=== PATIENT | female | born 1950 | race Caucasian/White ===

== ENCOUNTER → 2019-06-19 | Outpatient (CLI) | payer MEDICARE ==
[2019-06-19 11:22] LABS: African American GFR (CKD) >90 (>60 ml/min/1.73 sqM); Anion Gap 10 mmol/L; Blood Urea Nitrogen 19 mg/dL (7-17); Carbon Dioxide 25 mmol/L (22-30); Chloride 103 mmol/L (98-107); Non-African American GFR(CKD) 83 (>60 ml/min/1.73 sqM); Potassium 4.8 mmol/L (3.5-5.1); Sodium 138 mmol/L (137-145)
[2019-06-19 11:25] LABS: HCT 38.5 % (34.0-46.0); HGB 13.1 gm/dL (11.4-16.0); MCH 30.7 pg (25.0-35.0); MCHC 33.9 g/dL (31.0-37.0); MCV 90.6 fL (80.0-100.0); Mean Platelet Volume 7.2; Platelet Count 277 k/uL (150-450); RBC 4.25 m/uL (3.80-5.40); RDW 12.8 % (11.5-15.5); WBC 10.2 k/uL (3.8-10.6)
== END | disposition home or self-care (01) ==
LOC: LABPAT 10:38
PROVIDERS: ATTEND Internal Medicine Interventional Cardiology
DX: Z01.812 Encounter for preprocedural laboratory examination (principal); R94.39 Abnormal result of other cardiovascular function study
CPT/HCPCS: 80051; 82565; 84520; 85027

== ENCOUNTER 2019-06-30 09:17 | Day surgery (SDC) | payer MEDICARE ==
[~2019-06-30 09:17] MED LIST: ALPRAZolam 0.25 MG TAB PO PRN; ALPRAZolam 0.5 MG TAB PO PRN; ASPIRIN 325 MG TAB PO ONE; ATORVASTATIN 80 MG TAB PO ONE; NITROGLYCERIN SL TABS 0.4 MG TAB SUBLINGUAL PRN; SODIUM CHLORIDE 0.9% 1,000 ML in EMPTY BAG 1 BAG IV ONE
[2019-06-30] MEDS ORDERED: VERAPAMIL 2.5 MG/ML 2 ML AMP ONE (10:23)
[2019-06-30] MEDS ORDERED: HEPARIN SODIUM 1,000 UN/ML (10ML VL) ONE (10:23)
[2019-06-30] MEDS ORDERED: LIDOCAINE 1% INJ 10MG/ML (20 ML MDV) ONE (10:23)
[2019-06-30] MEDS ORDERED: MIDAZOLAM 2 MG/2 ML VIAL IVP ONE (11:00)
[2019-06-30] MEDS ORDERED: LIDOCAINE 1% INJ 10MG/ML (20 ML MDV) SQ ONE (11:02)
[2019-06-30] MEDS ORDERED: VERAPAMIL SYRINGE (5 MG/10 ML) INTRAARTER ONE (11:07)
[2019-06-30] MEDS ORDERED: HEPARIN SODIUM 1,000 UN/ML (10ML VL) IV ONE ×3 (11:08→11:58)
[2019-06-30] MEDS ORDERED: TICAGRELOR 90 MG TAB ONE (11:31)
[2019-06-30] MEDS ORDERED: TICAGRELOR 90 MG TAB PO ONE (11:33)
[2019-06-30] MEDS ORDERED: IOPAMIDOL-370 100ML BTL INJ ONE ×2 (11:33→12:17)
[2019-06-30] MEDS ORDERED: NITROGLYCERIN 1000MCG/10ML SYRINGE INTRACORON ONE ×3 (11:36→12:15)
[2019-06-30] MEDS ORDERED: IOPAMIDOL-370 50ML BTL INJ ONE (12:20)
[2019-06-30] MEDS ORDERED: ATROPINE SULFATE 0.1 MG/ML 10ML SYRINGE IV PRN (12:36)
[2019-06-30] MEDS ORDERED: ZOLPIDEM 5 MG TAB PO PRN (12:36)
[2019-06-30] MEDS ORDERED: MAG HYDROX/AL HYDROX/SIMETH 30 ML CUP PO PRN (12:36)
[2019-06-30] MEDS ORDERED: NITROGLYCERIN SL TABS 0.4 MG TAB SUBLINGUAL PRN (12:36)
[2019-06-30] MEDS ORDERED: RX INFO: IV CONTRAST WAS GIVEN 1 EACH MISC MISCELLANE PRN (12:36)
--- NOTE | 2019-06-30 13:48 | CC ---
CARDIAC CATHETERIZATION REPORT DATE OF SERVICE: 06/30/2019. PROCEDURE: 1. Left heart catheterization and coronary angiography. 2. PTCA and stenting of first obtuse marginal branch of circumflex. 3. PTCA of second obtuse marginal branch of circumflex. PERFORMED BY: Dr. Araceli Ramirez. Moderate conscious sedation time was 89 minutes. Patient was administered Versed. Oxygen saturation, hemodynamics and EKG were monitored closely. CLINICAL INFORMATION: Mrs. Kanwal Adler is a 69-year-old lady with a known history of hypertension, hypercholesterolemia who has also history of paroxysmal atrial fibrillation and had some wide QRS tachycardia issues. Recently, she had a positive stress test with ventricular ectopy as well as ST depression after 6 minutes of exercise, was seen and evaluated by Dr. Albert who advised coronary angiography. I met the patient and , explained to them the rationale, risks, benefits and options. They understood all details and wished to proceed with the procedure. PROCEDURE NOTE: Under local anesthesia and strict aseptic precautions, a 6-Australian introducer was placed in the right radial artery. Using 5-Australian diagnostic catheters at 3.5 left and a 4.0 right Vonda catheters, I performed coronary angiography and the same right catheter was used to check LV pressures but LV gram was not performed. I noted that there was significant lesions in the 2 obtuse marginal branches of circumflex and a moderate mid LAD lesion of about 40%. Advised PCI of the circumflex marginal lesions and proceeded to perform them in the same setting. Following the entire procedure, I was able to place a TR band as per protocol and secured good hemostasis. Saturation in the fingers of the right hand was 91%. CARDIAC CATHETERIZATION FINDINGS: The left ventricular end-diastolic pressure was 12 mmHg without any gradient across the aortic valve. CORONARY ANGIOGRAPHY FINDINGS: RIGHT CORONARY ARTERY: This is a large dominant vessel which has no significant disease and distally bifurcates into PDA and PLV, both of which supply a fair amount of myocardium. Minor irregularities. No significant disease in the dominant RCA. LEFT MAIN CORONARY ARTERY: Short patent disease-free vessel that bifurcates into LAD and circumflex. LEFT ANTERIOR DESCENDING CORONARY ARTERY: Good caliber vessel extends along the anterior wall. There is about a 40% lesion in the mid LAD noted in multiple projections. It does not appear critical but moderate and there is a septal branch that comes off and then this lesion is noted and the vessel runs all the way to the apex supplying a sizable amount of myocardium. LEFT POSTERIOR CIRCUMFLEX CORONARY ARTERY: This is a technically nondominant vessel has 2 obtuse marginal branches. The first large obtuse marginal has 80% to 85% narrowing starting from the proximal portion just after the takeoff from the main circumflex and extends distally. Second obtuse marginal lesion is more discrete. Both of these vessels are 2.5 caliber vessels. The circumflex after the second OM runs in the AV groove. LEFT VENTRICULOGRAM: Left ventriculogram was not performed. FINAL IMPRESSION: This patient has a right dominant system. Moderate 40% to 45% mid LAD lesion. An 85% lesion in the first large circumflex marginal and 80% in the second large obtuse marginal lesion. RCA is free of significant disease. No gradient across aortic valve. RECOMMENDATIONS: I recommended PCI of both the branches of circumflex and proceeded to perform in the same setting. PCI PROCEDURE DETAILS: I used a JL4 guide catheter to cannulate the left coronary artery and a run-through wire and wire was kept in the distal aspect of the first obtuse marginal. Predilatation was performed with a 2.25 caliber 12 mm Trek balloon and then I deployed an 18 mm long 2.5 caliber Xience stent and the proximal end of the stent was placed right at the ostium. Excellent angiographic result was achieved. Then, I advanced the same run-through wire into the second obtuse marginal and I tried to advance a 2.25 caliber 12 mm Trek balloon, but I had difficulty trying to get past the first obtuse marginal because a strut of the stent was probably protruding into the main vessel. I had considerable difficulty. Then I used a 2.0 caliber without success. Then I used a 1.5 caliber 8 mm Trek balloon. With this I was able to get across this area and then I dilated the mid circumflex at this origin of the first obtuse marginal and then with a 2.25 caliber balloon I went ahead and pre-dilated the second obtuse marginal lesion with a good result. There is a portion of circumflex between the 2 obtuse marginal that was somewhat hazy, but no critical lesion was noted. I then tried to advance the stent into the second obtuse marginal, and this was Mateo 2.0 stent but I had great difficulty even with 8 mm long Mateo stent, I could not advance into the second obtuse marginal and I was getting stuck in the first obtuse marginal where the strut of the first stent was protruding in. I used 2 wires and even with a double wire technique, I was unable to get the stent beyond. Eventually I settled for an angioplasty result which was fair with a residual lesion of about 50% in the second obtuse marginal, but the first obtuse marginal result was excellent. Mid circumflex had a hazy area with a 40% narrowing, there was MOLLY-3 flow. I discussed the findings in great detail with the patient as well as her and other family members. I explained to them that because of the location of the first stent in the first OM with protrusion into the main circumflex I could not advance the second stent distally. However, I will consider bringing her back after I see her in the office in a week and see if we can get beyond the first stent to open it up. The patient was then sent to the room in a stable condition and she was asymptomatic with a good MOLLY-3 flow. I will hopefully discharge her in the morning and re-evaluate her within a week. MMNEHA / IJN: [id number] /
[2019-06-30] MEDS: SODIUM CHLORIDE 0.9% 1,000 ML IV SCH (17:10)
[2019-06-30] MEDS: CARVEDILOL 3.125 MG TAB PO SCH (18:51)
[2019-06-30] MEDS: SPIRONOLACTONE 25 MG TAB PO SCH (20:52)
[2019-06-30] MEDS: ATORVASTATIN 80 MG TAB PO SCH (20:52)
[2019-07-01] MEDS: SODIUM CHLORIDE 0.9% 1,000 ML IV SCH (04:12)
[2019-07-01] MEDS: CARVEDILOL 3.125 MG TAB PO SCH ×2 (06:53→18:30)
[2019-07-01 07:04] LABS: Basophils # (A) 0.1 k/uL (0-0.2); Basophils % (A) 1 %; Eosinophils # (A) 0.3 k/uL (0-0.7); Eosinophils % (A) 3 %; HCT 36.7 % (34.0-46.0); Lymphocytes # (A) 1.9 k/uL (1.0-4.8); Lymphocytes % (A) 17 %; MCH 29.9 pg (25.0-35.0); MCHC 32.8 g/dL (31.0-37.0); MCV 91.1 fL (80.0-100.0); Mean Platelet Volume 7.4; Monocytes # (A) 0.5 k/uL (0-1.0); Monocytes % (A) 5 %; Neutrophils # (A) 7.7 k/uL (1.3-7.7); Neutrophils % (A) 72 %; Platelet Count 224 k/uL (150-450); RBC 4.03 m/uL (3.80-5.40); RDW 12.7 % (11.5-15.5); WBC 10.7 k/uL (3.8-10.6)
[2019-07-01 07:21] LABS: African American GFR (CKD) >90 (>60 ml/min/1.73 sqM); Anion Gap 7 mmol/L; Blood Urea Nitrogen 19 mg/dL (7-17); Calcium 9.4 mg/dL (8.4-10.2); Carbon Dioxide 28 mmol/L (22-30); Chloride 105 mmol/L (98-107); Glucose 128 mg/dL (74-99); Non-African American GFR(CKD) 88 (>60 ml/min/1.73 sqM); Potassium 4.8 mmol/L (3.5-5.1); Sodium 140 mmol/L (137-145)
[2019-07-01] MEDS: LYSINE 500 MG PO SCH (09:26)
[2019-07-01] MEDS: TICAGRELOR 90 MG TAB PO SCH ×2 (09:32→20:03)
[2019-07-01] MEDS: MULTIVITAMINS, THERA 1 EACH TAB PO SCH (09:32)
[2019-07-01] MEDS: ASPIRIN 81 MG PO SCH (09:33)
[2019-07-01] MEDS: LISINOPRIL 20 MG TAB PO SCH (09:33)
[2019-07-01] MEDS ORDERED: ASPIRIN 325 MG TAB PO STA (13:32)
[2019-07-01] MEDS ORDERED: ATORVASTATIN 80 MG TAB PO STA (13:32)
[2019-07-01] MEDS ORDERED: ALPRAZolam 0.5 MG TAB PO PRN (13:32)
[2019-07-01] MEDS ORDERED: NITROGLYCERIN SL TABS 0.4 MG TAB SUBLINGUAL PRN (13:32)
[2019-07-01] MEDS ORDERED: SODIUM CHLORIDE 0.9% 1,000 ML in EMPTY BAG 1 BAG IV ONE (13:32)
[2019-07-01] MEDS ORDERED: ALPRAZolam 0.25 MG TAB PO PRN (13:32)
--- NOTE | 2019-07-01 14:55 | PN ---
PROGRESS NOTE Mrs. Adler is doing well today. Her right radial cath site is clean and dry. Vitals are stable, no JVD. S1, S2 heard normally. Lungs are clear. Abdomen and lower extremity exam is unchanged. I reviewed her angiograms. Yesterday, when I perform the stenting, I stented only the first obtuse marginal, but that the second obtuse marginal was only dilated with a 2.258 mm balloon. I could not advance the stent. I explained to the patient and her that I will perform the procedure tomorrow from right femoral approach and hopefully we can advance the stent after optimizing the first obtuse marginal origin area with an NC Trek balloon and hopefully we can perform intervention of the second obtuse marginal. I will perform he procedure at 9 o'clock tomorrow. This is going to be a relatively high-risk procedure. I explained to the patient as well as her will perform this from right femoral approach. Rationale, risks, benefits, and options were carefully explained. They understood all details and wished to proceed with the procedure. Labs are good. Vitals are stable. EKG is unremarkable. I will perform the PTCA of second obtuse marginal and probably midcircumflex tomorrow. This will be performed from the right femoral approach. Patient and understand all details and wished to proceed with the procedure. MMODL / IJN: [id number] /
[2019-07-01] MEDS: SPIRONOLACTONE 25 MG TAB PO SCH (20:03)
[2019-07-01] MEDS: ATORVASTATIN 80 MG TAB PO SCH (20:03)
[2019-07-02 04:47] VITALS: PULSE 77
[2019-07-02] MEDS: ASPIRIN 81 MG PO SCH (05:44)
[2019-07-02] MEDS: CARVEDILOL 3.125 MG TAB PO SCH ×2 (07:00→18:55)
[2019-07-02] MEDS: MULTIVITAMINS, THERA 1 EACH TAB PO SCH (07:00)
[2019-07-02] MEDS: LISINOPRIL 20 MG TAB PO SCH ×2 (07:00→20:01)
[2019-07-02] MEDS ORDERED: LIDOCAINE 1% INJ 10MG/ML (20 ML MDV) ONE (09:06)
[2019-07-02] MEDS ORDERED: IV FLUID CONTINUATION 600 ML IV ONE (09:18)
[2019-07-02] MEDS ORDERED: MIDAZOLAM 2 MG/2 ML VIAL IV ONE (09:41)
[2019-07-02] MEDS ORDERED: TICAGRELOR 90 MG TAB ONE ×2 (09:42→10:26)
[2019-07-02] MEDS ORDERED: TICAGRELOR 90 MG TAB PO ONE ×2 (09:42→10:31)
[2019-07-02] MEDS ORDERED: LIDOCAINE 1% INJ 10MG/ML (20 ML MDV) SQ ONE (09:45)
[2019-07-02] MEDS ORDERED: BIVALIRUDIN BOLUS 250 MG/50 ML IV ONE (09:53)
[2019-07-02] MEDS ORDERED: BIVALIRUDIN 250 MG in SODIUM CHLORIDE 0.9% 50 ML IV ONE (09:55)
[2019-07-02] MEDS: NITROGLYCERIN 1000MCG/10ML SYRINGE INTRACORON ONE ×3 (09:57→10:27)
[2019-07-02] MEDS ORDERED: ADENOSINE 90 MG in SODIUM CHLORIDE 0.9% 60 ML IVP ONE (10:27)
[2019-07-02] MEDS ORDERED: HYDROmorphone 1 MG/ML 1 ML SYRINGE ONE (10:32)
[2019-07-02] MEDS ORDERED: HYDROmorphone 1 MG/ML 1 ML SYRINGE IVP ONE (10:33)
[2019-07-02] MEDS ORDERED: IOPAMIDOL-370 100ML BTL INJ ONE ×2 (10:33→10:34)
[2019-07-02] MEDS ORDERED: SODIUM CHLORIDE 0.9% 1,000 ML IV ONE (10:43)
[2019-07-02] MEDS ORDERED: NITROGLYCERIN SL TABS 0.4 MG TAB SUBLINGUAL PRN (10:52)
[2019-07-02] MEDS ORDERED: MAG HYDROX/AL HYDROX/SIMETH 30 ML CUP PO PRN (10:52)
[2019-07-02] MEDS ORDERED: RX INFO: IV CONTRAST WAS GIVEN 1 EACH MISC MISCELLANE PRN (10:52)
[2019-07-02] MEDS ORDERED: ZOLPIDEM 5 MG TAB PO PRN (10:52)
[2019-07-02] MEDS ORDERED: ATROPINE SULFATE 0.1 MG/ML 10ML SYRINGE IV PRN (10:52)
--- NOTE | 2019-07-02 11:32 | PTCA ---
PERCUTANEOUSTRANS CORORONARY ANGIOGRAPHY DATE OF SERVICE: 07/02/2019. PROCEDURE: 1. PTCA and stenting of second large obtuse marginal branch of circumflex. 2. PTCA of mid circumflex. 3. Fractional flow reserve assessment of mid LAD lesion. PERFORMED BY: Dr. Araceli Ramirez. Moderate conscious sedation time was 52 minutes. Patient was administered Versed. Oxygen saturation, hemodynamics and EKG were monitored closely. CLINICAL INFORMATION: Mr. Kanwal Adler is a 69-year-old lady with a history of abnormal stress test, paroxysmal atrial fibrillation, hypertension, and hyperlipidemia who was brought in for elective PCI on 06/30/19. I performed stenting of first obtuse marginal, but I could not stent the second OM because the proximal obtuse marginal stent was protruding into the main LAD and therefore I did only dilatation of second obtuse marginal. However, I brought her back today after explaining to the patient that I will attempt the procedure from the right femoral approach. Rationale, risks, benefits, options were explained. PROCEDURE NOTE: Under local anesthesia and strict aseptic precautions, a 6-Tamazight introducer was placed in the right femoral artery. I used an XB3.5 left guide catheter to cannulate the left coronary artery. I used a long run-through wire to cross the lesion in the mid circumflex and advance the wire into the second obtuse marginal. I tried to advance a 2.0 caliber 8 mm [place] stent, but I could not get beyond the first obtuse marginal. Because of the first OM stent strut obstructing the main channel. I then switched over to a 3.0 caliber 12 mm NC Trek balloon and with this I inflated the mid circumflex right at the first obtuse marginal and crossed the stent towards the obtuse marginal. Following this, I was able to advance the 2.0 caliber 8 mm Mateo stent without any problem. This stent was deployed at the ostium of the second obtuse marginal with excellent angiographic result. I then used a 2.5 caliber 8 mm long NC Trek balloon and post dilated the stent at 12 to 13 atmospheres. Patient had mild chest discomfort. No significant EKG changes. She received Angiomax bolus and infusion. She was already on Brilinta. I gave her an additional dose of 90 mg of Brilinta. Excellent angiographic result without complication was achieved. I then turned my attention to the LAD. The wire from the circumflex was taken out. Using the same guide, I used a Verrata wire and advanced and positioned this in the mid due to distal LAD. Patient had a moderate mid LAD lesion. I performed iFR and FFR. The iFR was 0.94. FFR was 0.90. Patient received adenosine as per protocol. The recordings were obtained after normalization and getting good measurements to begin with. Fractional flow reserve assessment in LAD was unremarkable suggesting that the lesion is not significant. I used a Perclose device to secure hemostasis and patient was sent to the room in a stable condition. Results were excellent. FFR of LAD was negative. Second obtuse marginal was stented with a drug-eluting stent. Results were discussed with the patient and family. I expect that she will be discharged tomorrow. KENDRICK / MARY ALICEN: [id number] /
--- NOTE | 2019-07-02 12:26 | PN ---
PROGRESS NOTE Mrs. Adler is in sinus rhythm, comfortable, resting. I recommended that I will perform a repeat intervention of her circumflex marginal today. I could not get beyond the first obtuse marginal because a stent was projecting into the main lumen, but I will attempt from the right femoral approach today. Discussed this in detail with the patient and her . Vitals are stable. EKG is unremarkable. S1-S2 heard normally. Lungs are clear. Abdomen and lower extremity exam unchanged. Potential discharge tomorrow after PCI today. I will also perform FFR of the LAD. Discussed my thoughts in detail with the patient. MMODL / IJN: [id number] /
[2019-07-02] MEDS: TICAGRELOR 90 MG TAB PO SCH ×2 (12:49→20:01)
[2019-07-02] MEDS: LYSINE 500 MG PO SCH (12:50)
[2019-07-02] MEDS: SPIRONOLACTONE 25 MG TAB PO SCH (20:01)
[2019-07-02] MEDS: ATORVASTATIN 80 MG TAB PO SCH (20:01)
[2019-07-03 01:14] VITALS: RESP 16
[2019-07-03] MEDS: SODIUM CHLORIDE 0.9% 1,000 ML IV SCH (06:37)
[2019-07-03] MEDS: CARVEDILOL 3.125 MG TAB PO SCH (06:38)
[2019-07-03 06:56] LABS: Basophils % (A) 0 %; Eosinophils # (A) 0.4 k/uL (0-0.7); Eosinophils % (A) 4 %; HCT 35.5 % (34.0-46.0); Lymphocytes # (A) 1.4 k/uL (1.0-4.8); Lymphocytes % (A) 14 %; MCH 30.6 pg (25.0-35.0); MCHC 33.8 g/dL (31.0-37.0); MCV 90.6 fL (80.0-100.0); Mean Platelet Volume 7.2; Monocytes # (A) 0.6 k/uL (0-1.0); Monocytes % (A) 6 %; Neutrophils # (A) 7.9 k/uL (1.3-7.7); Neutrophils % (A) 75 %; Platelet Count 277 k/uL (150-450); RBC 3.92 m/uL (3.80-5.40); RDW 12.6 % (11.5-15.5); WBC 10.6 k/uL (3.8-10.6)
[2019-07-03 07:05] LABS: African American GFR (CKD) >90 (>60 ml/min/1.73 sqM); Anion Gap 8 mmol/L; Blood Urea Nitrogen 18 mg/dL (7-17); Calcium 9.6 mg/dL (8.4-10.2); Carbon Dioxide 25 mmol/L (22-30); Chloride 105 mmol/L (98-107); Glucose 127 mg/dL (74-99); Non-African American GFR(CKD) 87 (>60 ml/min/1.73 sqM); Potassium 4.8 mmol/L (3.5-5.1); Sodium 138 mmol/L (137-145)
[2019-07-03] MEDS: LISINOPRIL 20 MG TAB PO SCH (09:28)
[2019-07-03] MEDS: TICAGRELOR 90 MG TAB PO SCH (09:28)
[2019-07-03] MEDS: ASPIRIN 81 MG PO SCH (09:28)
[2019-07-03] MEDS: MULTIVITAMINS, THERA 1 EACH TAB PO SCH (09:28)
[2019-07-03 09:32] VITALS: BP 134/63; TEMP 98.3
--- NOTE | 2019-07-03 11:26 | DS ---
DISCHARGE SUMMARY DATE OF ADMISSION: 06/30/2019. DATE OF DISCHARGE: 07/03/2019. DISCHARGE DIAGNOSIS: Unstable angina. PROCEDURES PERFORMED: On the from right radial approach, I performed stenting of the first obtuse marginal with a drug-eluting stent. I had difficulty going to the second obtuse marginal. Brought her back on the and from the right femoral approach, I performed stenting of second obtuse marginal and PTCA of mid circumflex. Postprocedure course was uneventful. Right radial and femoral sites are clean and dry with a good pulse. Vital signs stable. EKG is unremarkable. Laboratory data is unremarkable. She is asymptomatic ambulating without symptoms. Physical examination revealed blood pressure 130/70, pulse rate is about 70 per minute. No JVD. S1, S2 heard normally, short systolic murmur. Lungs are clear. Abdomen is soft. Right radial and right femoral cath sites are clean and dry with good pulses. Central nervous system is normal. EKG is unremarkable. Laboratory data is unremarkable. I am advising the patient can be discharged today. I reviewed with her the discharge medications and discharge instructions. I will see her in the office on the . She will not go home on Xarelto that she used to take before. I will send her on Brilinta 90 mg b.i.d. and aspirin 81 mg daily, and after 1 week, we will place her on a combination of Plavix and Xarelto. I explained this to the patient and I will see her on the and after that, she will follow up with Dr. Albert. Discharge instructions were given. MMODL / IJN: [id number] /
== END 2019-07-03 10:30 | disposition home or self-care (01) ==
LOC: CATHCVL 09:17 → 3SCARD 12:26 → CATHCVL 07-03 10:30
PROVIDERS: ATTEND Internal Medicine Interventional Cardiology
DX: I25.110 Atherosclerotic heart disease of native coronary artery with unstable angina pectoris (principal); I10 Essential (primary) hypertension; R94.39 Abnormal result of other cardiovascular function study; I48.0 Paroxysmal atrial fibrillation; E78.00 Pure hypercholesterolemia, unspecified; E78.5 Hyperlipidemia, unspecified; Z82.49 Family history of ischemic heart disease and other diseases of the circulatory system; Z79.01 Long term (current) use of anticoagulants; Z79.82 Long term (current) use of aspirin; Z79.899 Other long term (current) drug therapy; Z88.8 Allergy status to other drugs, medicaments and biological substances
CPT/HCPCS: 93571; 93458; 92920; 92921; 85347; 80048 ×2; 85025 ×2; C9600 ×2; C1769 ×7; C1887 ×2; C1725 ×5; C1894 ×2; C1760; C1874 ×3; J2250 ×2; J2001 ×2; J1644; J1170; J0583; J0153; Q9967 ×3

== ENCOUNTER → 2020-02-02 | Outpatient (CLI) | payer MEDICARE ==
[2020-02-02 16:17] LABS: Chol/HDL Ratio 3.3; LDL Cholesterol,Calculated 66.8 mg/dL (0.0-131.0); VLDL Calculation 34.2 mg/dL (5.00-40.00)
== END | disposition home or self-care (01) ==
LOC: LABWHC1 07:51
PROVIDERS: ATTEND Nurse Practitioner Adult Health
DX: E78.5 Hyperlipidemia, unspecified (principal)
CPT/HCPCS: 36415; 80061

== ENCOUNTER → 2024-04-23 | Outpatient (CLI) | payer MEDICARE ==
[2024-04-23 07:29] LABS: African American GFR (CKD) 81 (>60 ml/min/1.73 sqM); Blood Urea Nitrogen 24 mg/dL (7-17); Non-African American GFR(CKD) 70 (>60 ml/min/1.73 sqM)
--- NOTE | 2024-04-23 11:31 | CT ---
EXAMINATION TYPE: CT ChestAbdPelvis w con CT DLP: 1884 mGycm, Automated exposure control for dose reduction was used. DATE OF EXAM: 04/23/2024 8:50 AM COMPARISON: None CLINICAL INDICATION:Female, 73 years old with history of D50.9 IRON DEFICIENCY ANEMIA, UNSPECIFIED; P HH, anemia Technique: Multiple axial images of the chest, abdomen, and pelvis were obtained following the intrav enous administration of 100 mL Isovue-300. Oral contrast was administered. Two-dimensional coronal an d sagittal reconstructions were obtained. Findings: CHEST: LUNGS/ PLEURA: No pleural effusion, pneumothorax, or focal consolidation. Bibasilar dependent subple ural atelectasis. No suspicious pulmonary nodule or mass. AIRWAY: Patent and unremarkable.. HEART: Size within normal limits. No pericardial effusion. Coronary artery calcifications. MEDIASTINUM: No evidence of adenopathy. VASCULATURE: No aortic aneurysm. MUSCULOSKELETAL: No acute osseous abnormalities. SOFT TISSUES/LYMPH NODES: Unremarkable. LOWER NECK: No significant findings. ABDOMEN: ABDOMEN LIVER: Unremarkable GALLBLADDER AND BILE DUCTS: Contracted gallbladder with a 1.6 cm gallstone. No biliary ductal dilatat ion. PANCREAS: Unremarkable. SPLEEN: Unremarkable. ADRENAL GLANDS: Unremarkable. KIDNEYS AND URETERS: No evidence of hydronephrosis or renal calculus. The kidneys enhance symmetrical ly. Contrast is demonstrated within both collecting systems on the delayed phase. PELVIS BLADDER: Incompletely distended but grossly unremarkable. REPRODUCTIVE: Unremarkable. ABDOMEN & PELVIS STOMACH AND BOWEL: Stomach and duodenum are unremarkable. Sigmoid diverticulosis without evidence for acute diverticulitis. Ileocecal lipoma identified measuring up to 1.5 cm. Enteric contrast reaches t he proximal transverse colon. The appendix is within normal limits. No evidence of bowel obstruction. PERITONEUM: No evidence of pneumoperitoneum or free fluid. VASCULATURE: Mild atherosclerotic calcifications are present throughout the abdominal aorta and its b ranches. No abdominal aortic aneurysm. Multiple pelvic phleboliths. MUSCULOSKELETAL: No acute osseous abnormalities. Moderate multilevel degenerative disc disease. Mild retrolisthesis of L5 on S1 without pars defects. LYMPH NODES: No evidence for lymphadenopathy. SOFT TISSUE/ABDOMINAL WALL: Unremarkable IMPRESSION: 1. No acute process within the chest, abdomen and pelvis. 2. Sigmoid diverticulosis without evidence for acute diverticulitis. 3. Cholelithiasis. [facility], , 04/23/2024 11:28 AM
== END | disposition home or self-care (01) ==
LOC: RADCTMAIN 06:52
PROVIDERS: ATTEND Internal Medicine
CPT/HCPCS: 36415; 71260; 74177; 82565; 84520

== ENCOUNTER → 2024-04-28 | Day surgery (SDC) | payer MEDICARE ==
[2024-04-24 15:08] VITALS: BMI 27.4
[~2024-04-28] MED LIST changes: -ALPRAZolam 0.25 MG TAB PO PRN; -ALPRAZolam 0.5 MG TAB PO PRN; -ASPIRIN 325 MG TAB PO ONE; -ATORVASTATIN 80 MG TAB PO ONE; +LIDOCAINE 1% (10MG/ML) FOR IV START INTRADERMA PRN; +LIDOCAINE 2% (PF) 20 MG/ML 5 ML VIAL ONE; -NITROGLYCERIN SL TABS 0.4 MG TAB SUBLINGUAL PRN; +ONDANSETRON 4 MG/2 ML VIAL IVP PRN; +PROPOFOL 10 MG/ML 20 ML VIAL IV ONE; -SODIUM CHLORIDE 0.9% 1,000 ML in EMPTY BAG 1 BAG IV ONE
[2024-04-28 09:24] VITALS: TEMP 97.3
[2024-04-28] MEDS: LACTATED RINGERS 1,000 ML IV SCH (09:32)
[2024-04-28] MEDS: IV FLUID CONTINUATION 1,000 ML IV ONE (09:32)
[2024-04-28 09:36] LABS: Glucose,Whole Blood 153 mg/dL (70-110)
--- NOTE | 2024-04-28 10:07 | P.PCN ---
Date of Procedure: 04/28/24 Procedure(s) Performed: Brief history: Patient is a pleasant 73-year-old white female scheduled for an elective upper endoscopy as well as colonoscopy as a part of evaluation of iron deficiency anemia and screening for colon cancer. She has A-fib and has been on Xarelto which is on hold for the last 2 days. Procedure performed: Esophagogastroduodenoscopy with biopsy Colonoscopy Preoperative diagnosis: Iron deficiency anemia Screening for colon cancer Anesthesia: MAC Procedure: After informed consent was obtained from the patient was brought into the endoscopy unit and IV sedation was administered by anesthesia under continuous monitoring. Initially upper endoscopy was done. The Olympus GF 160 video endoscope was inserted inserted into the mouth and esophagus intubated without any difficulty and was gradually advanced into the stomach and duodenum and carefully examined. The bulb and second part of the duodenum appeared normal. The scope was then withdrawn into the stomach adequately insufflated with air and upon careful examination the antrum had mild antral gastritis and biopsies were done from this area. Mucosa body, cardia and fundus appeared normal. The scope was then withdrawn into the esophagus. Small hiatal hernia noted. The GE junction was located at 40 cm to the incisors. It appeared regular with no erythema erosions or ulcerations. Rest of the esophagus appeared normal. Patient tolerated the procedure well. At this time the patient continued to remain sedation. Initial digital rectal examination was normal. Olympus CF 160 video colonoscope was then inserted into the rectum and gradually advanced to the cecum without any difficulty. Careful examination was performed as the scope was gradually being withdrawn. The prep was excellent. The cecum, ascending colon, transverse colon, descending colon, sigmoid colon and rectum appeared normal. Scattered sigmoid diverticulosis. Retroflexion was performed in the rectum and no lesions were noted. Patient tolerated the procedure well. Impression: 1. Upper endoscopy revealed small hiatal hernia and mild antral gastritis 2. Colonoscopy revealed scattered sigmoid diverticulosis but no evidence of colorectal neoplasia Recommendations: Findings of this examination were discussed with the patient as well as her family. She was advised to follow-up with the biopsy results. Recommended repeat screening colonoscopy in 10 years. Resume Xarelto today.
[2024-04-28 10:32] VITALS: RESP 14
[2024-04-28 10:45] VITALS: BP 149/70; PULSE 73
== END | disposition home or self-care (01) ==
LOC: ORWHC2ENDO 08:46
PROVIDERS: ATTEND Internal Medicine Gastroenterology
DX: Z12.11 Encounter for screening for malignant neoplasm of colon (principal); D50.9 Iron deficiency anemia, unspecified; K44.9 Diaphragmatic hernia without obstruction or gangrene; K29.50 Unspecified chronic gastritis without bleeding; K57.30 Diverticulosis of large intestine without perforation or abscess without bleeding; I48.91 Unspecified atrial fibrillation; I25.10 Atherosclerotic heart disease of native coronary artery without angina pectoris; E78.5 Hyperlipidemia, unspecified; I10 Essential (primary) hypertension; E11.9 Type 2 diabetes mellitus without complications; Z79.01 Long term (current) use of anticoagulants; Z79.899 Other long term (current) drug therapy; Z79.84 Long term (current) use of oral hypoglycemic drugs; Z79.82 Long term (current) use of aspirin
CPT/HCPCS: 88304; 88305; 43239; J2704; J2003; G0121; 45378

== ENCOUNTER 2024-07-18 12:29 | Inpatient (IN) | payer MEDICARE ==
--- NOTE | 2024-07-18 12:38 | ED ---
General Adult HPI - General Chief complaint: Recheck/Abnormal Lab/Rx Stated complaint: Hemaglobin 6.55 Time Seen by Provider: 07/18/24 12:36 Source: patient Mode of arrival: ambulatory Limitations: no limitations - History of Present Illness Initial comments: Patient presents to the ED with her daughter for evaluation. Patient states that she had a regular scheduled doctor's appointment with her PCP yesterday at which time she had labs drawn. Patient states that she was called today and told that her hemoglobin was 6.5, and she was advised to come to the ER for a transfusion. Patient states that her only symptoms recently have been exertion with dyspnea. Patient denies feeling dyspneic at rest or currently. Patient denies having any symptoms at this time. Patient denies noticing any bloody or melanotic stools. Patient denies having any pain, fever or chills, headache, focal numbness/weakness/neuro deficit, chest pain or pressure, cough or cold symptoms, palpitations, dizziness/lightheadedness, abdominal pain, nausea/vomiting/diarrhea, dysuria/hematuria/urinary frequency/urinary symptoms, urine output, leg or calf pain, or any other symptoms or complaints. Patient states that her left lower leg is always slightly more swollen than her right lower leg, and it has been that way for many years. Patient is on Xarelto anticoagulation (last dose was yesterday). - Related Data Home Medications Medication Instructions Recorded Confirmed Benazepril HCl 20 mg PO BID 05/14/14 04/24/24 Spironolactone 25 mg PO AC-SUPPER 05/14/14 04/24/24 carvediloL [Carvedilol] 3.125 mg PO BID 05/14/14 04/24/24 Lysine [l-Lysine] 500 mg PO DAILY 06/22/19 04/24/24 Atorvastatin [Lipitor] 80 mg PO AC-SUPPER 04/24/24 04/24/24 Cholecalciferol [Vitamin D3 (25 25 mcg PO DAILY 04/24/24 04/24/24 Mcg = 1000 Iu)] Cyanocobalamin (Vitamin B-12) 1,000 mcg PO DAILY 04/24/24 04/24/24 [Vitamin B-12] Magnesium Gluconate [Magonate] 240 mg PO DAILY 04/24/24 04/24/24 Multivit with Calcium,Iron,Min 1 each PO DAILY 04/24/24 04/24/24 [Women's Multivitamin] Rivaroxaban [Xarelto] 20 mg PO AC-SUPPER 04/24/24 04/24/24 metFORMIN HCL 500 mg PO AC-SUPPER 04/24/24 04/24/24 Previous Rx's Medication Instructions Recorded Aspirin 81 mg PO DAILY #30 chewable 07/03/19 Nitroglycerin Sl Tabs [Nitrostat] 0.4 mg SUBLINGUAL Q5M PRN #100 tab 07/03/19 Allergies Allergy/AdvReac Type Severity Reaction Status Date / Time No Known Allergies Allergy Verified 07/18/24 12:31 Review of Systems ROS Statement: Those systems with pertinent positive or pertinent negative responses have been documented in the HPI. ROS Other: All systems not noted in ROS Statement are negative. Past Medical History Past Medical History: Atrial Fibrillation, Hyperlipidemia, Hypertension Additional Past Medical History / Comment(s): edema in left leg. iron deficiency History of Any Multi-Drug Resistant Organisms: None Reported Past Surgical History: Cardiac Ablation, Section, Tonsillectomy Additional Past Surgical History / Comment(s): cardiac ablation x 2, Past Anesthesia/Blood Transfusion Reactions: Previous Problems w/ Anesthesia, Motion Sickness Additional Past Anesthesia/Blood Transfusion Reaction / Comment(s): diaphoretic and shaky with C/S Date of Last Stent Placement:: 07/02/2019 Past Psychological History: No Psychological Hx Reported Smoking Status: Never smoker - Past Family History Sister(s) Family Medical History: Cancer General Exam Limitations: no limitations General appearance: alert, in no apparent distress Eye exam: Present: normal appearance ENT exam: Present: mucous membranes moist Neck exam: Present: other (Trachea is in midline) Respiratory exam: Present: normal lung sounds bilaterally. Absent: respiratory distress, wheezes, rales, rhonchi, stridor Cardiovascular Exam: Present: regular rate, normal rhythm, normal heart sounds, other (Normal radial pulses bilaterally) GI/Abdominal exam: Present: soft. Absent: distended, tenderness, guarding Rectal exam: Present: normal inspection, normal rectal tone, other (Brown- colored stool was retrieved on digital rectal exam and sent for Hemoccult testing). Absent: black stool, bloody stool, tenderness Extremities exam: Present: other (negative Homans' sign bilaterally; trace bilateral lower extremity pedal edema (left greater than right)). Absent: tenderness, calf tenderness Neurological exam: Present: alert, oriented X3. Absent: motor sensory deficit Psychiatric exam: Present: normal affect Skin exam: Present: warm, dry, other (slightly pale in color) Course Vital Signs 07/18/24 12:32 Temperature 97.8 F Pulse Rate 76 Respiratory 20 Rate Blood Pressure 155/69 O2 Sat by Pulse 97 Oximetry - Reevaluation(s) Reevaluation #1: 07/18/24 13:06 Case was discussed with Dr. Linares who saw the patient in his clinic yesterday. He recommends/accepts hospital admission. He is aware that we do not have GI process validation engineer at the hospital this weekend. He has asked for general surgery and heme/onc consultations. He also recommends blood transfusion. He has no further recommendations at this time. 07/18/24 14:17 Patient remains alert and breathing comfortably. Patient denies development of any new symptoms while in the ED. Patient's blood pressure remains within normal limits. Patient and daughter are aware of the patient's test results thus far, as well as my discussion with Dr. Linares as above, and they both agree with hospital admission at this time. EKG Findings - EKG Comments: EKG Findings:: ED physician interpretation (interpreted by me): Normal sinus rhythm, no ectopy, ventricular rate of 69 bpm, normal NC and QRS intervals, normal QT interval, normal axis, no ST or T wave abnormality Medical Decision Making - Medical Decision Making Was pt. sent in by a medical professional or institution (, PA, ENDOSCOPIC TECHNICIAN, urgent care, hospital, or [facility]...) When possible be specific @ -Patient was advised to come to the ED by her PCPs office (Dr. Linares's office). Did you speak to anyone other than the patient for history (EMS, parent, family, police, friend...)? What history was obtained from this source @ -No Did you review nursing and triage notes (agree or disagree)? Why? @ -I reviewed and agree with nursing and triage notes Were old charts reviewed (outside hosp., previous admission, EMS record, old EKG, old radiological studies, urgent care reports/EKG's, ch[facility] records)? Report findings @ -No old charts were reviewed Differential Diagnosis (chest pain, altered mental status, abdominal pain women, abdominal pain men, vaginal bleeding, weakness, fever, dyspnea, syncope, headache, dizziness, GI bleed, back pain, seizure, CVA, palpatations, mental health, musculoskeletal)? @ -Anemia, iron deficiency, GI bleed, hemorrhage, dyspnea, CAD, CHF, COPD, pleural effusion, hematologic disorder, lab error, this is not meant to be a complete list. EKG interpreted by me (3pts min.). @ -As above X-rays interpreted by me (1pt min.). @ -Chest x-ray was reviewed myself and shows no acute abnormality. I agree with the radiologist's interpretation as above. CT interpreted by me (1pt min.). @ -None done U/S interpreted by me (1pt. min.). @ -None done What testing was considered but not performed or refused? (CT, X-rays, U/S, labs)? Why? @ -None What meds were considered but not given or refused? Why? @ -None Did you discuss the management of the patient with other professionals (professionals i.e. , PA, ENDOSCOPIC TECHNICIAN, lab, RT, psych nurse, social service worker, diorama model maker, teacher, forest fire control officer, outpatient case manager)? Give summary @ -No Was smoking cessation discussed for >3mins.? @ -No Was critical care preformed (if so, how long)? @ -No Were there social determinants of health that impacted care today? How? (Homelessness, low income, unemployed, alcoholism, drug addiction, transportation, low edu. Level, literacy, decrease access to med. care, residential, rehab)? @ -No Was there de-escalation of care discussed even if they declined (Discuss DNR or withdrawal of care, Hospice)? DNR status @ -No What co-morbidities impacted this encounter? (DM, HTN, Smoking, COPD, CAD, Canc er, CVA, ARF, Chemo, Hep., AIDS, mental health diagnosis, sleep apnea, morbid obesity)? @ -None Was patient admitted / discharged? Hospital course, mention meds given and route, prescriptions, significant lab abnormalities, going to OR and other pertinent info. @ -Patient has been hemodynamically stable while in the ED. Patient's Hemoccult is negative. Patient's hemoglobin is 6.9, and a packed RBC transfusion has been initiated in the ED. Patient's case was discussed with her PCP, Dr. Linares, and he has recommended/accepted hospital admission. Oncology and general surgery consultation orders were placed per Dr. Linares's request. Will admit the patient to the hospital at this time for further evaluation and management. Patient and daughter agree with this plan. Undiagnosed new problem with uncertain prognosis? @ -No Drug Therapy requiring intensive monitoring for toxicity (Heparin, Nitro, Insulin, Cardizem)? @ -No Were any procedures done? @ -No Diagnosis/symptom? @ -Microcytic anemia Acute, or Chronic, or Acute on Chronic? @ -Default Uncomplicated (without systemic symptoms) or Complicated (systemic symptoms)? @ -Default Side effects of treatment? @ -No Exacerbation, Progression, or Severe Exacerbation? @ -No Poses a threat to life or bodily function? How? (Chest pain, USA, OR, pneumonia, PE, COPD, DKA, ARF, appy, cholecystitis, CVA, Diverticulitis, Homicidal, Anabela cidal, threat to staff... and all critical care pts) @ -Yes, possibly. - Lab Data Result diagrams: 07/18/24 13:16 07/18/24 13:16 - Radiology Data Chest x-ray: No acute process. Disposition Clinical Impression: Microcytic anemia Disposition: ADMITTED IP TO THIS [facility] Condition: Stable Is patient prescribed a controlled substance at d/c from ED?: No Time of Disposition: 13:08
--- NOTE | 2024-07-18 13:10 | XR ---
EXAMINATION TYPE: XR chest 1V portable DATE OF EXAM: 07/18/2024 COMPARISON: 05/18/2014 CLINICAL INDICATION: Female, 74 years old with history of pain; TECHNIQUE: Single frontal view of the chest is obtained. FINDINGS: There is no focal air space opacity, pleural effusion, or pneumothorax seen. The cardiac silhouette size is within normal limits. The osseous structures are intact. There is persistent mil d elevation of the right hemidiaphragm. IMPRESSION: No acute process. [facility], , 07/18/2024 1:07 PM
[2024-07-18] MEDS ORDERED: NALOXONE 0.4 MG/ML 1 ML VIAL IV PRN (13:15)
[2024-07-18 13:40] LABS: ALT 16 U/L (4-34); AST 24 U/L (14-36); African American GFR (CKD) 85 (>60 ml/min/1.73 sqM); Albumin 4.2 g/dL (3.5-5.0); Alkaline Phosphatase 78 U/L (38-126); Anion Gap 12 mmol/L; Blood Urea Nitrogen 26 mg/dL (7-17); Calcium 9.7 mg/dL (8.4-10.2); Carbon Dioxide 23 mmol/L (22-30); Chloride 103 mmol/L (98-107); Glucose 167 mg/dL (74-99); Non-African American GFR(CKD) 74 (>60 ml/min/1.73 sqM); Potassium 4.4 mmol/L (3.5-5.1); Sodium 138 mmol/L (137-145); Total Bilirubin 0.6 mg/dL (0.2-1.3)
[2024-07-18 13:42] LABS: INR 1.2 (<1.2); Partial Thromboplastin Time 25.5 sec (22.0-30.0); Prothrombin Time 12.9 sec (10.0-12.5)
[2024-07-18 13:45] LABS: Anisocytosis Slight; Basophils % (A) 0 %; Eosinophils # (A) 0.3 k/uL (0-0.7); Eosinophils % (A) 4 %; HCT 22.9 % (34.0-46.0); Hypochromasia Marked; Lymphocytes # (A) 1.7 k/uL (1.0-4.8); Lymphocytes % (A) 22 %; MCH 21.7 pg (25.0-35.0); MCHC 30.1 g/dL (31.0-37.0); Mean Platelet Volume 7.4; Microcytosis Moderate; Monocytes # (A) 0.5 k/uL (0-1.0); Monocytes % (A) 7 %; Neutrophils % (A) 64 %; Platelet Count 357 k/uL (150-450); Poikilocytosis Slight; RBC 3.18 m/uL (3.80-5.40); RDW 17.5 % (11.5-15.5); WBC 7.9 k/uL (3.8-10.6)
[2024-07-18 13:47] LABS: NT-Pro-B-Type Natriuretic Pept 453 pg/mL
[2024-07-18 13:54] LABS: HGB 6.9 gm/dL (11.4-16.0)
[2024-07-18 20:07] LABS: Glucose,Whole Blood 168 mg/dL (70-110)
--- NOTE | 2024-07-18 21:23 | P.CON ---
Consult Note - . Consult date: 07/18/24 Assessment/Plan:: Patient presents to the ED with her daughter for evaluation. Patient states that she had a regular scheduled doctor's appointment with her PCP yesterday at which time she had labs drawn. Patient states that she was called today and randa d that her hemoglobin was 6.5, and she was advised to come to the ER for a transfusion. Patient states that her only symptoms recently have been shortness of breath. Patient denies feeling dyspneic at rest or currently. Only with activity. Patient denies having any symptoms at this time. Patient denies noticing any bloody or melanotic stools. Patient is on Xarelto anticoagulation. Patient states she had a recent EGD and Colonoscopy in April which was normal. Patient was seen in ER. Review of Systems ROS Statement: Those systems with pertinent positive or pertinent negative responses have been documented in the HPI. ROS Other: All systems not noted in ROS Statement are negative. Past Medical History Past Medical History: Atrial Fibrillation, Hyperlipidemia, Hypertension Additional Past Medical History / Comment(s): edema in left leg. iron defic iency History of Any Multi-Drug Resistant Organisms: None Reported Past Surgical History: Cardiac Ablation, Section, Tonsillectomy Additional Past Surgical History / Comment(s): cardiac ablation x 2, Past Anesthesia/Blood Transfusion Reactions: Previous Problems w/ Anesthesia, Motion Sickness Additional Past Anesthesia/Blood Transfusion Reaction / Comment(s): diaphoretic and shaky with C/S Date of Last Stent Placement:: 07/02/2019 Past Psychological History: No Psychological Hx Reported Smoking Status: Never smoker - Past Family History Sister(s) Family Medical History: Cancer General Exam Limitations: no limitations General appearance: alert, in no apparent distress Eye exam: Present: normal appearance ENT exam: Present: mucous membranes moist Neck exam: Present: other (Trachea is in midline) Respiratory exam: Present: normal lung sounds bilaterally. Absent: respiratory distress, wheezes, rales, rhonchi, stridor Cardiovascular Exam: Present: regular rate, normal rhythm, normal heart sounds, other (Normal radial pulses bilaterally) GI/Abdominal exam: Present: soft. Absent: distended, tenderness, guarding Rectal exam: Present: normal inspection, normal rectal tone, other (Brown- colored stool was retrieved on digital rectal exam and sent for Hemoccult testing). Absent: black stool, bloody stool, tenderness Extremities exam: Present: other (negative Homans' sign bilaterally; trace bilateral lower extremity pedal edema (left greater than right)). Absent: tenderness, calf tenderness Neurological exam: Present: alert, oriented X3. Absent: motor sensory deficit Psychiatric exam: Present: normal affect Skin exam: Present: warm, dry, other (slightly pale in color) 74 year old female with Anemia. -Transfuse 2 units PRBCs -Follow up post transfusion hgb -Hold Xarelto -Regular Diet -No plan for endoscopy at this time Bernardo Wilson DO [facility] [phone]
[2024-07-18] MEDS ORDERED: NITROGLYCERIN SL TABS 0.4 MG TAB SUBLINGUAL PRN (21:48)
[2024-07-18] MEDS ORDERED: ONDANSETRON 4 MG/2 ML VIAL IVP PRN (21:50)
[2024-07-18] MEDS: carvediloL 3.125 MG TAB PO SCH (22:13)
[2024-07-18] MEDS: ATORVASTATIN 80 MG TAB PO SCH (23:24)
[2024-07-18] MEDS: PANTOPRAZOLE 40 MG/10 ML VIAL IVP SCH (23:24)
[2024-07-19 06:51] LABS: Glucose,Whole Blood 122 mg/dL (70-110)
[2024-07-19] MEDS: MAGNESIUM OXIDE 400 MG TAB PO SCH (07:50)
[2024-07-19] MEDS: ASPIRIN 81 MG PO SCH (07:51)
[2024-07-19] MEDS: lisinopriL 20 MG TAB PO SCH (07:51)
[2024-07-19] MEDS: MULTIVITAMINS, THERA 1 EACH TAB PO SCH (07:51)
[2024-07-19] MEDS: CHOLECALCIFEROL 25 MCG (1000 IU) TABLET PO SCH (07:51)
[2024-07-19] MEDS: CYANOCOBALAMIN 500 MCG TAB PO SCH (07:51)
[2024-07-19] MEDS ORDERED: NON FORMULARY DRUG (Lysine [L-Lysine] 500 MG Tablet) PO SCH (09:00)
[2024-07-19 09:30] LABS: HCT 30.8 % (37.2-46.3); MCH 22.8 pg (27.0-32.0); MCHC 29.2 g/dL (32.0-37.0); MCV 78.2 FL (80.0-97.0); Mean Platelet Volume 9.8 FL (9.5-12.2); NRBC Per 100 WBC 0 X 10*3/uL (0.00-0.01); Platelet Count 340 X 10*3/uL (140-440); RBC 3.94 X 10*6/uL (4.10-5.20); RDW 20.6 % (11.5-14.5); WBC 10.31 X 10*3/uL (4.50-10.00)
[2024-07-19 09:31] LABS: Basophils # (A) 0.07 X 10*3/uL (0.00-0.10); Basophils % (A) 0.7 %; Eosinophils # (A) 0.36 X 10*3/uL (0.04-0.35); Eosinophils % (A) 3.5 %; Lymphocytes # (A) 1.89 X 10*3/uL (0.90-5.00); Lymphocytes % (A) 18.3 %; Monocytes # (A) 1.07 X 10*3/uL (0.20-1.00); Monocytes % (A) 10.4 %; Neutrophils # (A) 6.88 X 10*3/uL (1.80-7.70); Neutrophils % (A) 66.7 %
[2024-07-19 09:50] LABS: ALT 13 U/L (8-44); AST 20 U/L (13-35); Albumin 3.8 g/dL (3.8-4.9); Albumin/Globulin Ratio 1.41 Ratio (1.60-3.17); Alkaline Phosphatase 83 U/L (41-126); Blood Urea Nitrogen 19.2 mg/dL (9.0-27.0); Calcium 9.3 mg/dL (8.7-10.3); Carbon Dioxide 24.2 mmol/L (21.6-31.8); Chloride 106 mmol/L (96-109); Globulin 2.7 g/dL (1.6-3.3); Glucose 103 mg/dL (70-110); Potassium 4.8 mmol/L (3.5-5.5); Sodium 140 mmol/L (135-145); Total Bilirubin 1.6 mg/dL (0.3-1.2); Total Protein 6.5 g/dL (6.2-8.2)
--- NOTE | 2024-07-19 10:04 | P.PN ---
Progress Note - Text Progress Note Date: 07/19/24 Patient seen and examined. She is sitting in chair comfortable. Denies bloody bowel movements. She responded well to PRBCS. General appearance: alert, in no apparent distress Eye exam: Present: normal appearance ENT exam: Present: mucous membranes moist Neck exam: Present: other (Trachea is in midline) Respiratory exam: Present: normal lung sounds bilaterally. Absent: respiratory distress, wheezes, rales, rhonchi, stridor Cardiovascular Exam: Present: regular rate, normal rhythm, normal heart sounds, other (Normal radial pulses bilaterally) GI/Abdominal exam: Present: soft. Absent: distended, tenderness, guarding Rectal exam: Present: normal inspection, normal rectal tone, other (Brown- colored stool was retrieved on digital rectal exam and sent for Hemoccult testing). Absent: black stool, bloody stool, tenderness Extremities exam: Present: other (negative Homans' sign bilaterally; trace bilateral lower extremity pedal edema (left greater than right)). Absent: tenderness, calf tenderness Neurological exam: Present: alert, oriented X3. Absent: motor sensory deficit Psychiatric exam: Present: normal affect Skin exam: Present: warm, dry, other (slightly pale in color) 74 year old female with Anemia. -Tranfused 2 units PRBCs and responded well -Hematology recs -Ok for Bri from surgery standpoint -Regular Diet -No plan for endoscopy at this time Bernardo Wilson DO [facility] [phone]
[2024-07-19 11:37] LABS: Glucose,Whole Blood 115 mg/dL (70-110)
--- NOTE | 2024-07-19 14:53 | P.HPIM ---
History of Present Illness H&P Date: 07/19/24 History of present illness: 74-year-old female with past medical history significant for atrial fibrillation on anticoagulation, history of coronary artery disease status post PCI in 2019, who was sent from PCP office after abnormal labs. Patient had her lab drawn at the PCP office 1 day prior to arrival to the ED, patient was called and was advised to come to the hospital for blood transfusion as patient's hemoglobin was low at 6.5 patient denied any nosebleed, hematemesis, melena, blood in the stools. Patient denied any chest pain or palpitation, patient complained of shortness of breath. Patient was taking Xarelto for anticoagulation for atrial fibrillation patient had recently EGD and colonoscopy in April which was unremarkable without any active bleed. Patient is afebrile, heart rate 67, respiratory rate 16, blood pressure 149/68, saturating 97% on room air. On presentation WBC 7.9, hemoglobin 6.9, platelet 357. Hemoglobin improved to 9.0 today after 2 units of packed RBCs. INR was 1.2. BMP unremarkable. Total bilirubin was normal 0.6 yesterday, today 1.6. FOBT negative. Assessment and plan: Acute on chronic anemia: Baseline hemoglobin ranges from 11.5-12. On presentation hemoglobin 6.9, status post 2 unit of packed RBCs, hemoglobin 9.0 now. Check iron studies, B12, folate level. IV Protonix General Surgery consultedno sign or symptom of active bleed, no plan for endoscopy given recent EGD and colonoscopy in April. Hematology consult Monitor hemoglobin and transfuse for hemoglobin less than 7.0. Hold Xarelto Paroxysmal atrial fibrillation: History of coronary artery disease status post PCI in 2019: DVT prophylaxis SCD Monitor vital signs and labs Labs and medication were reviewed. Continue same treatment. Further recommendations as per clinical course of the patient PHYSICAL EXAMINATION: GENERAL: The patient is A&O x3, NAD HEENT: EOMI, Sclerae anicteric, Moist Mucous membranes Neck: Supple, Non tender, No JVD PULMONARY: Equal breath souds B/L, No wheezing, No crackles. CARDIOVASCULAR: S1, S2 present. No murmurs, rubs, or gallops. ABDOMEN: Soft, nontender, nondistended, normoactive bowel sounds. No guarding or rebound tenderness. MUSCULOSKELETAL: No edema, No cyanosis. No clubbing. Normal ROM. Intact peripheral pulses. NEUROLOGICAL: CN 2-12 grossly intact. No FND REVIEW OF SYSTEMS: CONSTITUTIONAL: No fever, no malaise, no fatigue. HEENT: No recent visual problems or hearing problems. Denied any sore throat. CARDIOVASCULAR: No chest pain, orthopnea, PND, no palpitations, no syncope. PULMONARY: No shortness of breath, no cough, no hemoptysis. GASTROINTESTINAL: No diarrhea, no nausea, no vomiting, no abdominal pain. NEUROLOGICAL: No headaches, no weakness, no numbness. HEMATOLOGICAL: Denies any bleeding or petechiae. GENITOURINARY: Denies any burning micturition, frequency, or urgency. MUSCULOSKELETAL/RHEUMATOLOGICAL: Denies any joint pain, swelling, or any muscle pain. ENDOCRINE: Denies any polyuria or polydipsia. The rest of the 14-point review of systems is negative. Dictation was produced using [employer] dictation software. please excuse any grammatical, word or spelling errors. Past Medical History Past Medical History: Atrial Fibrillation, Diabetes Mellitus, Hyperlipidemia, Hypertension Additional Past Medical History / Comment(s): edema in left leg. iron deficiency History of Any Multi-Drug Resistant Organisms: None Reported Past Surgical History: Cardiac Ablation, Section, Tonsillectomy Additional Past Surgical History / Comment(s): cardiac ablation x 2, Past Anesthesia/Blood Transfusion Reactions: Previous Problems w/ Anesthesia, Motion Sickness Additional Past Anesthesia/Blood Transfusion Reaction / Comment(s): diaphoretic and shaky with C/S Date of Last Stent Placement:: 07/02/2019 Past Psychological History: No Psychological Hx Reported Smoking Status: Never smoker Past Alcohol Use History: Occasional Additional Past Alcohol Use History / Comment(s): 1-2 drinks a week Past Drug Use History: None Reported - Past Family History Sister(s) Family Medical History: Cancer Medications and Allergies Home Medications Medication Instructions Recorded Confirmed Type Benazepril HCl 20 mg PO BID 05/14/14 07/18/24 History Spironolactone 25 mg PO AC-SUPPER 05/14/14 07/18/24 History carvediloL [Carvedilol] 3.125 mg PO BID 05/14/14 07/18/24 History Lysine [l-Lysine] 500 mg PO DAILY 06/22/19 07/18/24 History Aspirin 81 mg PO DAILY #30 chewable 07/03/19 07/18/24 Rx Nitroglycerin Sl Tabs [Nitrostat] 0.4 mg SUBLINGUAL Q5M PRN #100 tab 07/03/19 07/18/24 Rx Atorvastatin [Lipitor] 80 mg PO AC-SUPPER 04/24/24 07/18/24 History Cholecalciferol [Vitamin D3 (25 25 mcg PO DAILY 04/24/24 07/18/24 History Mcg = 1000 Iu)] Cyanocobalamin (Vitamin B-12) 1,000 mcg PO DAILY 04/24/24 07/18/24 History [Vitamin B-12] Magnesium Gluconate [Magonate] 240 mg PO DAILY 04/24/24 07/18/24 History Multivit with Calcium,Iron,Min 1 tab PO DAILY 04/24/24 07/18/24 History [Women's Multivitamin] Rivaroxaban [Xarelto] 20 mg PO AC-SUPPER 04/24/24 07/18/24 History metFORMIN HCL 500 mg PO AC-SUPPER 04/24/24 07/18/24 History Allergies Allergy/AdvReac Type Severity Reaction Status Date / Time No Known Allergies Allergy Verified 07/18/24 17:10 Physical Exam Vitals: Vital Signs Temp Pulse Pulse Resp BP BP Pulse Ox 07/19/24 13:33 98.1 F 67 16 149/68 97 07/19/24 07:31 98.2 F 66 16 174/71 96 07/19/24 02:00 98.7 F 70 17 131/65 95 07/18/24 23:30 97.9 F 69 16 179/64 95 07/18/24 21:24 98.4 F 65 16 150/69 97 07/18/24 21:04 98 F 69 16 142/68 96 07/18/24 20:50 98.3 F 71 16 156/69 98 07/18/24 19:21 98.0 F 69 18 158/71 95 07/18/24 17:06 98 F 71 18 136/78 07/18/24 16:46 98.2 F 66 18 146/74 07/18/24 16:32 98.2 F 64 16 146/74 07/18/24 15:15 81 18 125/61 97 Intake and Output 07/18/24 07/19/24 07/19/24 22:59 06:59 14:59 Intake Total 310 310 Balance 310 310 Intake: Blood Product 310 310 Rc As-1 Unit 0 310 [id number] Rc As-1 Unit 310 [id number] Other: # Voids 2 Weight 70.76 kg Results CBC & Chem 7: 07/19/24 03:04 07/19/24 03:04 Labs: Abnormal Lab Results - Last 24 Hours (Table) 07/18/24 07/18/24 07/19/24 Range/Units 13:15 20:06 03:04 WBC 10.31 H (4.50-10.00) X 10*3/uL RBC 3.94 L (4.10-5.20) X 10*6/uL Hgb 9.0 L (12.0-15.0) g/dL Hct 30.8 L (37.2-46.3) % MCV 78.2 L (80.0-97.0) FL MCH 22.8 L (27.0-32.0) pg MCHC 29.2 L (32.0-37.0) g/dL RDW 20.6 H (11.5-14.5) % Monocytes # 1.07 H (0.20-1.00) X 10*3/uL Eosinophils # 0.36 H (0.04-0.35) X 10*3/uL BUN/Creatinine Ratio (12.00-20.00) Ratio POC Glucose (mg/dL) 168 H (70-110) mg/dL Total Bilirubin (0.3-1.2) mg/dL Albumin/Globulin Ratio (1.60-3.17) Ratio Crossmatch See Detail 07/19/24 07/19/24 07/19/24 Range/Units 03:04 06:50 11:36 WBC (4.50-10.00) X 10*3/uL RBC (4.10-5.20) X 10*6/uL Hgb (12.0-15.0) g/dL Hct (37.2-46.3) % MCV (80.0-97.0) FL MCH (27.0-32.0) pg MCHC (32.0-37.0) g/dL RDW (11.5-14.5) % Monocytes # (0.20-1.00) X 10*3/uL Eosinophils # (0.04-0.35) X 10*3/uL BUN/Creatinine Ratio 24.00 H (12.00-20.00) Ratio POC Glucose (mg/dL) 122 H 115 H (70-110) mg/dL Total Bilirubin 1.6 H (0.3-1.2) mg/dL Albumin/Globulin Ratio 1.41 L (1.60-3.17) Ratio Crossmatch Thrombosis Risk Factor Assmnt - Choose All That Apply Any of the Below Risk Factors Present?: No Other Risk Factors: Yes Each Risk Factor Represents 3 Points: Age 75 years or older Other congenital or acquired thrombophilia - If yes, enter type in comment: Yes Thrombosis Risk Factor Assessment Total Risk Factor Score: 3 Thrombosis Risk Factor Assessment Level: Moderate Risk
[2024-07-19 16:29] LABS: Anisocytosis Slight; HCT 29.6 % (34.0-46.0); Hypochromasia Marked; MCH 24.6 pg (25.0-35.0); MCV 76.8 fL (80.0-100.0); Mean Platelet Volume 7.3; Microcytosis Moderate; Platelet Count 326 k/uL (150-450); Poikilocytosis Moderate; RBC 3.86 m/uL (3.80-5.40); RDW 19.8 % (11.5-15.5); WBC 10.1 k/uL (3.8-10.6)
[2024-07-19 16:30] LABS: HGB 9.5 gm/dL (11.4-16.0)
[2024-07-19 16:32] LABS: Glucose,Whole Blood 145 mg/dL (70-110)
[2024-07-19 16:39] LABS: Reticulocyte % 1.9 % (0.5-2.0)
[2024-07-19] MEDS: SPIRONOLACTONE 25 MG TAB PO SCH (16:57)
[2024-07-19] MEDS: metFORMIN 500 MG TAB PO SCH (16:57)
[2024-07-19 20:22] LABS: Glucose,Whole Blood 137 mg/dL (70-110)
[2024-07-19] MEDS: PANTOPRAZOLE 40 MG/10 ML VIAL IVP SCH (20:37)
[2024-07-19 20:42] VITALS: RESP 18
--- NOTE | 2024-07-19 22:30 | P.CONS ---
History of Present Illness - Reason for Consult Consult date: 07/19/24 anemia Requesting physician: Raymon Bee - Chief Complaint low hgb - History of Present Illness Patient is a 74-year-old female who presented to the emergency room by her PCP after outpatient labs showed hemoglobin 6.5. Patient reports she has been experiencing shortness of breath over the last couple months that is worse upon exertion. Patient does have a significant history of atrial fibrillation and cardiac stent and is anticoagulated with Xarelto and on daily aspirin. Patient denies blood in stool and melena. She reports she underwent EGD and colonoscopy in April [address] Delgadillo which showed no significant findings or active bleed. Upon admit hemoglobin noted at 6.9, MCV 72.0, MCHC 30.1. Platelets 357,000. WBC 7.9. Creatinine 0.8, GFR 76. PT 12.9, INR 1.2, PTT 25.5. Bilirubin 0.6 upon admit, today did increase to 1.6. LFTs WNL. Stool occult negative. Patient denies previous history of anemia or receiving previous blood transfusions. Denies history of colon surgery, gastric bypass/gastric sleeve. Reports a well-balanced diet, no history of celiac disease. Upon trending labs, pt did have mild anemia in 2020/2021, with hgb in 11 range. Review of Systems 10 point ROS is negative except as stated in the HPI Past Medical History Past Medical History: Atrial Fibrillation, Diabetes Mellitus, Hyperlipidemia, Hypertension Additional Past Medical History / Comment(s): edema in left leg. iron deficiency History of Any Multi-Drug Resistant Organisms: None Reported Past Surgical History: Cardiac Ablation, Section, Tonsillectomy Additional Past Surgical History / Comment(s): cardiac ablation x 2, Past Anesthesia/Blood Transfusion Reactions: Previous Problems w/ Anesthesia, Motion Sickness Additional Past Anesthesia/Blood Transfusion Reaction / Comm: diaphoretic and shaky with C/S Date of Last Stent Placement:: 07/02/2019 Past Psychological History: No Psychological Hx Reported Smoking Status: Never smoker Past Alcohol Use History: Occasional Additional Past Alcohol Use History / Comment(s): 1-2 drinks a week Past Drug Use History: None Reported - Past Family History Sister(s) Family Medical History: Cancer Medications and Allergies Home Medications Medication Instructions Recorded Confirmed Type Benazepril HCl 20 mg PO BID 05/14/14 07/18/24 History Spironolactone 25 mg PO AC-SUPPER 05/14/14 07/18/24 History carvediloL [Carvedilol] 3.125 mg PO BID 05/14/14 07/18/24 History Lysine [l-Lysine] 500 mg PO DAILY 06/22/19 07/18/24 History Aspirin 81 mg PO DAILY #30 chewable 07/03/19 07/18/24 Rx Nitroglycerin Sl Tabs [Nitrostat] 0.4 mg SUBLINGUAL Q5M PRN #100 tab 07/03/19 07/18/24 Rx Atorvastatin [Lipitor] 80 mg PO AC-SUPPER 04/24/24 07/18/24 History Cholecalciferol [Vitamin D3 (25 25 mcg PO DAILY 04/24/24 07/18/24 History Mcg = 1000 Iu)] Cyanocobalamin (Vitamin B-12) 1,000 mcg PO DAILY 04/24/24 07/18/24 History [Vitamin B-12] Magnesium Gluconate [Magonate] 240 mg PO DAILY 04/24/24 07/18/24 History Multivit with Calcium,Iron,Min 1 tab PO DAILY 04/24/24 07/18/24 History [Women's Multivitamin] Rivaroxaban [Xarelto] 20 mg PO AC-SUPPER 04/24/24 07/18/24 History metFORMIN HCL 500 mg PO AC-SUPPER 04/24/24 07/18/24 History Allergies Allergy/AdvReac Type Severity Reaction Status Date / Time No Known Allergies Allergy Verified 07/18/24 17:10 Physical Exam Vitals: Vital Signs Temp Pulse Pulse Resp BP BP Pulse Ox 07/19/24 07:31 98.2 F 66 16 174/71 96 07/19/24 02:00 98.7 F 70 17 131/65 95 07/18/24 23:30 97.9 F 69 16 179/64 95 07/18/24 21:24 98.4 F 65 16 150/69 97 07/18/24 21:04 98 F 69 16 142/68 96 07/18/24 20:50 98.3 F 71 16 156/69 98 07/18/24 19:21 98.0 F 69 18 158/71 95 07/18/24 17:06 98 F 71 18 136/78 07/18/24 16:46 98.2 F 66 18 146/74 07/18/24 16:32 98.2 F 64 16 146/74 07/18/24 15:15 81 18 125/61 97 Intake and Output 07/18/24 07/19/24 07/19/24 22:59 06:59 14:59 Intake Total 310 310 Balance 310 310 Intake: Blood Product 310 310 Rc As-1 Unit 0 310 [id number] Rc As-1 Unit 310 [id number] Other: # Voids 2 Weight 70.76 kg - Constitutional General appearance: average body habitus, no acute distress - EENT Eyes: anicteric sclerae, EOMI ENT: hearing grossly normal - Respiratory Respiratory: bilateral: CTA - Cardiovascular Rhythm: regular - Gastrointestinal General gastrointestinal: soft, no tenderness - Integumentary Integumentary: no cyanotic, no jaundiced - Neurologic Neurologic: CNII-XII intact - Musculoskeletal Musculoskeletal: strength equal bilaterally - Psychiatric Psychiatric: A&O x's 3 Results CBC & Chem 7: 07/19/24 16:03 07/19/24 03:04 Labs: Abnormal Lab Results - Last 24 Hours (Table) 07/18/24 07/18/24 07/19/24 Range/Units 13:15 20:06 03:04 WBC 10.31 H (4.50-10.00) X 10*3/uL RBC 3.94 L (4.10-5.20) X 10*6/uL Hgb 9.0 L (12.0-15.0) g/dL Hct 30.8 L (37.2-46.3) % MCV 78.2 L (80.0-97.0) FL MCH 22.8 L (27.0-32.0) pg MCHC 29.2 L (32.0-37.0) g/dL RDW 20.6 H (11.5-14.5) % Monocytes # 1.07 H (0.20-1.00) X 10*3/uL Eosinophils # 0.36 H (0.04-0.35) X 10*3/uL BUN/Creatinine Ratio (12.00-20.00) Ratio POC Glucose (mg/dL) 168 H (70-110) mg/dL Total Bilirubin (0.3-1.2) mg/dL Albumin/Globulin Ratio (1.60-3.17) Ratio Crossmatch See Detail 07/19/24 07/19/24 07/19/24 Range/Units 03:04 06:50 11:36 WBC (4.50-10.00) X 10*3/uL RBC (4.10-5.20) X 10*6/uL Hgb (12.0-15.0) g/dL Hct (37.2-46.3) % MCV (80.0-97.0) FL MCH (27.0-32.0) pg MCHC (32.0-37.0) g/dL RDW (11.5-14.5) % Monocytes # (0.20-1.00) X 10*3/uL Eosinophils # (0.04-0.35) X 10*3/uL BUN/Creatinine Ratio 24.00 H (12.00-20.00) Ratio POC Glucose (mg/dL) 122 H 115 H (70-110) mg/dL Total Bilirubin 1.6 H (0.3-1.2) mg/dL Albumin/Globulin Ratio 1.41 L (1.60-3.17) Ratio Crossmatch Assessment and Plan (1) Microcytic anemia Current Visit: Yes Status: Acute Priority: High Code(s): D50.9 - IRON DEFICIENCY ANEMIA, UNSPECIFIED SNOMED Code(s): 196226882 Plan: Microcytic anemia: Was sent to the emergency room by her PCP after outpatient labs showed hemo globin 6.5. Patient reports she has been experiencing shortness of breath over the last couple months that is worse upon exertion. Patient does have a significant history of atrial fibrillation and cardiac stent and is anticoagulated with Xarelto and on daily aspirin. Patient denies blood in stool and melena. She reports she underwent EGD and colonoscopy in April [address] Sumner which showed no significant findings or active bleed. Patient denies previous history of anemia or receiving previous blood transfusions. Denies history of GI surgery, and states she has well-balanced diet and no history of celiac disease. Upon trending labs, pt did have mild anemia in 2020/2021, with hgb in 11 range. -Upon admit hemoglobin noted at 6.9, MCV 72.0, MCHC 30.1. Platelets 357,000. WBC 7.9. Creatinine 0.8, GFR 76. PT 12.9, INR 1.2, PTT 25.5. Bilirubin 0.6 upon admit, today did increase to 1.6. LFTs WNL. -S/p 2 units PRBCs, with appropriate response in hgb, 9.0 today -Stool occult negative -General surgery following, no plan for endoscopic evaluation at this time -Will obtain nutritional studies and hemolysis labs. Labs requested on pre- transfusion blood. Will provide further recommendations pending workup. -If no s/s of GI bleed is noted, and hgb remains stable without acute drop, pt can be restarted on anticoagulation. Would recommend outpt f/u with GI
[2024-07-20 00:32] LABS: Anisocytosis Moderate; HCT 31.3 % (34.0-46.0); HGB 9.8 gm/dL (11.4-16.0); Hypochromasia Marked; MCH 24.1 pg (25.0-35.0); MCHC 31.5 g/dL (31.0-37.0); MCV 76.5 fL (80.0-100.0); Mean Platelet Volume 7.6; Microcytosis Moderate; Platelet Count 332 k/uL (150-450); Poikilocytosis Moderate; RBC 4.09 m/uL (3.80-5.40); RDW 20.1 % (11.5-15.5)
[2024-07-20 06:26] LABS: Glucose,Whole Blood 118 mg/dL (70-110)
[2024-07-20 07:43] VITALS: BP 174/67; PULSE 75; TEMP 98.7
[2024-07-20 08:27] LABS: % Iron Saturation 21.43 (12.00-45.00); Ferritin 21.8 ng/mL (10.0-291.0); Iron 84 UG/DL (50-170); Total Iron Binding Capacity 392 UG/DL (228-460)
[2024-07-20 08:49] LABS: ALT 13 U/L (8-44); AST 20 U/L (13-35); Albumin/Globulin Ratio 1.48 Ratio (1.60-3.17); Alkaline Phosphatase 89 U/L (41-126); BUN/Creat Ratio 17.56 Ratio (12.00-20.00); Blood Urea Nitrogen 15.8 mg/dL (9.0-27.0); Calcium 9.7 mg/dL (8.7-10.3); Carbon Dioxide 23.5 mmol/L (21.6-31.8); Chloride 104 mmol/L (96-109); Globulin 2.7 g/dL (1.6-3.3); Glucose 114 mg/dL (70-110); Potassium 4.8 mmol/L (3.5-5.5); Sodium 140 mmol/L (135-145); Total Bilirubin 0.6 mg/dL (0.3-1.2); Total Protein 6.7 g/dL (6.2-8.2)
[2024-07-20 08:56] LABS: Vitamin B12 >3600.0 pg/mL (200.0-944.0)
[2024-07-20 09:22] LABS: % Iron Saturation 3.63 (12.00-45.00); Ferritin 9.2 ng/mL (10.0-291.0)
[2024-07-20 10:02] LABS: Basophils # (A) 0.11 X 10*3/uL (0.00-0.10); Basophils % (A) 0.9 %; Eosinophils # (A) 0.46 X 10*3/uL (0.04-0.35); Eosinophils % (A) 3.6 %; HCT 32.3 % (37.2-46.3); HGB 9.6 g/dL (12.0-15.0); Lymphocytes # (A) 2.02 X 10*3/uL (0.90-5.00); Lymphocytes % (A) 15.8 %; MCH 23.2 pg (27.0-32.0); MCHC 29.7 g/dL (32.0-37.0); Mean Platelet Volume 9.5 FL (9.5-12.2); Monocytes # (A) 1.23 X 10*3/uL (0.20-1.00); Monocytes % (A) 9.6 %; NRBC Per 100 WBC 0 X 10*3/uL (0.00-0.01); Neutrophils # (A) 8.95 X 10*3/uL (1.80-7.70); Neutrophils % (A) 69.7 %; Platelet Count 347 X 10*3/uL (140-440); RBC 4.14 X 10*6/uL (4.10-5.20); RDW 21.5 % (11.5-14.5); WBC 12.82 X 10*3/uL (4.50-10.00)
[2024-07-20] MEDS: SODIUM FERRIC GLUCONAT-SUCROSE 125 MG in SODIUM CHLORIDE 0.9% 100 ML IVPB SCH (10:07)
--- NOTE | 2024-07-20 10:41 | P.DS ---
Providers Date of admission: 07/18/24 13:15 Expected date of discharge: 07/20/24 Attending physician: Fausto Linares Consults: 07/18/24 13:15 Consult Physician Urgent Consulting Provider: Reji Nolan Consult Reason/Comments: Anemia Do you want consulting provider notified?: Yes Consult Physician Urgent Consulting Provider: Bernardo Wilson Consult Reason/Comments: Anemia, possible GI bleed Do you want consulting provider notified?: Yes Primary care physician: Fausto Linares Hospital Course: History of present illness: 74-year-old female with past medical history significant for atrial fibrillation on anticoagulation, history of coronary artery disease status post PCI in 2019, who was sent from PCP office after abnormal labs. Patient had her lab drawn at the PCP office 1 day prior to arrival to the ED, patient was called and was advised to come to the hospital for blood transfusion as patient's hemoglobin was low at 6.5 patient denied any nosebleed, hematemesis, melena, blood in the stools. Patient denied any chest pain or palpitation, patient complained of shortness of breath. Patient was taking Xarelto for anticoagulation for atrial fibrillation patient had recently EGD and colonoscopy in April which was unremarkable without any active bleed. Patient is afebrile, heart rate 67, respiratory rate 16, blood pressure 149/68, saturating 97% on room air. On presentation WBC 7.9, hemoglobin 6.9, platelet 357. Hemoglobin improved to 9.0 today after 2 units of packed RBCs. INR was 1.2. BMP unremarkable. Total bilirubin was normal 0.6 yesterday, today 1.6. FOBT negative. 07/20: Patient is sitting up in a chair no apparent distress, she denies any chest pain, shortness of breath at this time, she did receive 1 unit of packed blood cell transfusion, hemoglobin is stable at this time, patient was seen earlier by hematology and recommended for the patient to be seen by GI as an outpatient, patient did have an EGD and colonoscopy in April 2024 that did not show evidence of acute normalities the patient never had MR enterography which I will be scheduling as an outpatient, I will send the patient home today and she will follow-up with me as an outpatient this week for further evaluation recommendation. Discharge diagnoses 1.Acute on chronic anemia 2. Paroxysmal atrial fibrillation: 3. History of coronary artery disease status post PCI in 2019 4. Diabetes mellitus type 2. 5. Hypertension and hypertensive cardiovascular disease. 6. Mixed hyperlipidemia. 7. Iron deficiency anemia. Patient Condition at Discharge: Stable Plan - Discharge Summary Discharge Rx Participant: No New Discharge Prescriptions: No Action Benazepril HCl 20 mg PO BID Spironolactone 25 mg PO AC-SUPPER carvediloL [Carvedilol] 3.125 mg PO BID Lysine [l-Lysine] 500 mg PO DAILY Aspirin 81 mg PO DAILY #30 chewable Nitroglycerin Sl Tabs [Nitrostat] 0.4 mg SUBLINGUAL Q5M PRN #100 tab PRN Reason: Chest Pain Atorvastatin [Lipitor] 80 mg PO AC-SUPPER Multivit with Calcium,Iron,Min [Women's Multivitamin] 1 tab PO DAILY metFORMIN HCL 500 mg PO AC-SUPPER Cyanocobalamin (Vitamin B-12) [Vitamin B-12] 1,000 mcg PO DAILY Cholecalciferol [Vitamin D3 (25 Mcg = 1000 Iu)] 25 mcg PO DAILY Rivaroxaban [Xarelto] 20 mg PO AC-SUPPER Magnesium Gluconate [Magonate] 240 mg PO DAILY Discharge Medication List Benazepril HCl 20 mg PO BID 05/14/14 [History] Spironolactone 25 mg PO AC-SUPPER 05/14/14 [History] carvediloL [Carvedilol] 3.125 mg PO BID 05/14/14 [History] Lysine [l-Lysine] 500 mg PO DAILY 06/22/19 [History] Aspirin 81 mg PO DAILY #30 chewable 07/03/19 [Rx] Nitroglycerin Sl Tabs [Nitrostat] 0.4 mg SUBLINGUAL Q5M PRN #100 tab 07/03/19 [Rx] Atorvastatin [Lipitor] 80 mg PO AC-SUPPER 04/24/24 [History] Cholecalciferol [Vitamin D3 (25 Mcg = 1000 Iu)] 25 mcg PO DAILY 04/24/24 [History] Cyanocobalamin (Vitamin B-12) [Vitamin B-12] 1,000 mcg PO DAILY 04/24/24 [History] Magnesium Gluconate [Magonate] 240 mg PO DAILY 04/24/24 [History] Multivit with Calcium,Iron,Min [Women's Multivitamin] 1 tab PO DAILY 04/24/24 [History] Rivaroxaban [Xarelto] 20 mg PO AC-SUPPER 04/24/24 [History] metFORMIN HCL 500 mg PO AC-SUPPER 04/24/24 [History] Follow up Appointment(s)/Referral(s): Fausto Linares MD [Primary Care Provider] - 1-2 days
--- NOTE | 2024-07-20 13:56 | P.PN ---
Subjective Progress Note Date: 07/20/24 Principal diagnosis: Anemia IN f/u today pt reports feeling well, no fevers, n,V, she is tolerating oral intake, she can ambulate independently with out assistive device, no unusual SOB. Denies any bleeding. Objective - Vital Signs Vital signs: Vital Signs Temp 98.7 F 07/20/24 07:41 Pulse 75 07/20/24 07:41 Resp 18 07/20/24 07:41 BP 174/67 07/20/24 07:41 Pulse Ox 92 L 07/20/24 07:41 FiO2 Intake & Output 07/19/24 07/20/24 07/20/24 18:59 06:59 18:59 Intake Total 680 240 Balance 680 240 Intake: Oral 680 240 Other: # Voids 4 2 # Bowel Movements 1 - Constitutional General appearance: Present: average body habitus, cooperative, no acute distress - EENT Eyes: Present: anicteric sclerae, EOMI ENT: Present: hearing grossly normal - Respiratory Details: resp even and unlabored - Cardiovascular Details: skin warm, well perfused - Peripheral edema leg Peripheral Edema: bilateral: None - Integumentary Integumentary: Present: normal - Neurologic Neurologic: Present: CNII-XII intact - Musculoskeletal Musculoskeletal: Present: strength equal bilaterally - Psychiatric Psychiatric: Present: A&O x's 3, appropriate affect, intact judgment & insight - Labs CBC & Chem 7: 07/20/24 02:59 07/20/24 02:59 Labs: Abnormal Lab Results - Last 24 Hours (Table) 07/18/24 07/18/24 07/19/24 Range/Units 13:16 13:16 10:59 WBC (3.8-10.6) k/uL Hgb (11.4-16.0) gm/dL Hct (34.0-46.0) % MCV (80.0-100.0) fL MCH (25.0-35.0) pg MCHC (32.0-37.0) g/dL RDW (11.5-15.5) % Immature Gran # (0.00-0.04) X 10*3/uL Neutrophils # (1.80-7.70) X 10*3/uL Monocytes # (0.20-1.00) X 10*3/uL Eosinophils # (0.04-0.35) X 10*3/uL Basophils # (0.00-0.10) X 10*3/uL Haptoglobin 212.0 H (31.2-198.0) mg/dL Anion Gap (4.00-12.00) mmol/L Glucose (70-110) mg/dL POC Glucose (mg/dL) (70-110) mg/dL Iron 15 L (50-170) UG/DL % Saturation 3.63 L (12.00-45.00) Ferritin 9.2 L (10.0-291.0) ng/mL Albumin/Globulin Ratio (1.60-3.17) Ratio Vitamin B12 >3600.0 H (200.0-944.0) pg/mL Folate (4.40-31.00) ng/mL 07/19/24 07/19/24 07/19/24 Range/Units 10:59 16:03 16:31 WBC (3.8-10.6) k/uL Hgb 9.5 L D (11.4-16.0) gm/dL Hct 29.6 L (34.0-46.0) % MCV 76.8 L (80.0-100.0) fL MCH 24.6 L (25.0-35.0) pg MCHC (32.0-37.0) g/dL RDW 19.8 H (11.5-15.5) % Immature Gran # (0.00-0.04) X 10*3/uL Neutrophils # (1.80-7.70) X 10*3/uL Monocytes # (0.20-1.00) X 10*3/uL Eosinophils # (0.04-0.35) X 10*3/uL Basophils # (0.00-0.10) X 10*3/uL Haptoglobin (31.2-198.0) mg/dL Anion Gap (4.00-12.00) mmol/L Glucose (70-110) mg/dL POC Glucose (mg/dL) 145 H (70-110) mg/dL Iron (50-170) UG/DL % Saturation (12.00-45.00) Ferritin (10.0-291.0) ng/mL Albumin/Globulin Ratio (1.60-3.17) Ratio Vitamin B12 (200.0-944.0) pg/mL Folate 36.60 H (4.40-31.00) ng/mL 07/19/24 07/19/24 07/20/24 Range/Units 20:21 23:12 02:59 WBC 11.0 H 12.82 H (3.8-10.6) k/uL Hgb 9.8 L 9.6 L (11.4-16.0) gm/dL Hct 31.3 L 32.3 L (34.0-46.0) % MCV 76.5 L 78.0 L (80.0-100.0) fL MCH 24.1 L 23.2 L (25.0-35.0) pg MCHC 29.7 L (32.0-37.0) g/dL RDW 20.1 H 21.5 H (11.5-15.5) % Immature Gran # 0.05 H (0.00-0.04) X 10*3/uL Neutrophils # 8.95 H (1.80-7.70) X 10*3/uL Monocytes # 1.23 H (0.20-1.00) X 10*3/uL Eosinophils # 0.46 H (0.04-0.35) X 10*3/uL Basophils # 0.11 H (0.00-0.10) X 10*3/uL Haptoglobin (31.2-198.0) mg/dL Anion Gap (4.00-12.00) mmol/L Glucose (70-110) mg/dL POC Glucose (mg/dL) 137 H (70-110) mg/dL Iron (50-170) UG/DL % Saturation (12.00-45.00) Ferritin (10.0-291.0) ng/mL Albumin/Globulin Ratio (1.60-3.17) Ratio Vitamin B12 (200.0-944.0) pg/mL Folate (4.40-31.00) ng/mL 07/20/24 07/20/24 Range/Units 02:59 06:24 WBC (3.8-10.6) k/uL Hgb (11.4-16.0) gm/dL Hct (34.0-46.0) % MCV (80.0-100.0) fL MCH (25.0-35.0) pg MCHC (32.0-37.0) g/dL RDW (11.5-15.5) % Immature Gran # (0.00-0.04) X 10*3/uL Neutrophils # (1.80-7.70) X 10*3/uL Monocytes # (0.20-1.00) X 10*3/uL Eosinophils # (0.04-0.35) X 10*3/uL Basophils # (0.00-0.10) X 10*3/uL Haptoglobin (31.2-198.0) mg/dL Anion Gap 12.50 H (4.00-12.00) mmol/L Glucose 114 H (70-110) mg/dL POC Glucose (mg/dL) 118 H (70-110) mg/dL Iron (50-170) UG/DL % Saturation (12.00-45.00) Ferritin (10.0-291.0) ng/mL Albumin/Globulin Ratio 1.48 L (1.60-3.17) Ratio Vitamin B12 (200.0-944.0) pg/mL Folate (4.40-31.00) ng/mL Assessment and Plan (1) Microcytic anemia Status: Acute Priority: High Code(s): D50.9 - IRON DEFICIENCY ANEMIA, UNSPECIFIED SNOMED Code(s): 589323236 Plan: Microcytic anemia -Iron studies and iron sat low, prior to PRBC transfusions x 2. -Hgb went from 6.9 to the 9 range after 2 units PRBCs -No reported gross bleeding -Pt has had endoscopy. She states that there is a possible plan for capsule endoscopy, agree with the same. -Recommend f/u with Cardiology. Inquire if baby asa daily can be safely discontinued and continue on eliquis to reduce risk of bleeding. -Pt is leaving for [place] in a few weeks. Recommended she take oral iron. Rx sent for the same. - She will f/u with Dr. Cartagnea when she returns in September Pt agrees with the plan of care. attests: I have performed H&P, seen and examined pt, developed impression and plan of care. Discussed with dictator. Agree with documentation, dictated as a scribe.
--- NOTE | 2024-07-20 16:17 | P.PN ---
Subjective Progress Note Date: 07/20/24 SURGICAL PROGRESS NOTE CHIEF COMPLAINT: Anemia HISTORY OF PRESENT ILLNESS: Patient sitting up in bed comfortably. She has had no bloody bowel movements. Hemoglobin stable at 9.8. She did receive 2 units of blood during this admission. Her last EGD and colonoscopy were in April and patient reports them as normal. Iron levels low. She will be on iron at home. Patient seen by hematology. Denies any abdominal pain. PHYSICAL EXAM: VITAL SIGNS: Reviewed. GENERAL: Well-developed in no acute distress. ABDOMEN: Soft. Nondistended. Nontender. NEUROLOGIC: Alert and oriented. Cranial nerves II through XII grossly intact. ASSESSMENT: 1. Anemia with iron deficiency anemia and no active signs of bleeding PLAN: -Okay for discharge from surgical standpoint -Okay to resume Xarelto -No plans for endoscopy at this time Physician Ceramics Teacher note has been reviewed by physician. Signing provider agrees with the documented findings, assessment, and plan of care. Attestation Patient seen and examined at bedside. No bloody bowel movements. Hemoglobin of 9.8. She did have upper and lower endoscopy performed about 2 months ago. Continue iron supplementation. No plan for endoscopy at this time as there does not appear to be any active signs of bleeding. Femi Linton, Objective - Vital Signs Vital signs: Vital Signs Temp 98.7 F 07/20/24 07:41 Pulse 75 07/20/24 07:41 Resp 18 07/20/24 07:41 BP 174/67 07/20/24 07:41 Pulse Ox 92 L 07/20/24 07:41 FiO2 Intake & Output 07/19/24 07/20/24 07/20/24 18:59 06:59 18:59 Intake Total 680 240 Balance 680 240 Intake: Oral 680 240 Other: # Voids 4 2 # Bowel Movements 1 - Labs CBC & Chem 7: 07/20/24 02:59 07/20/24 02:59 Labs: Abnormal Lab Results - Last 24 Hours (Table) 07/18/24 07/18/24 07/19/24 Range/Units 13:16 13:16 10:59 WBC (3.8-10.6) k/uL Hgb (11.4-16.0) gm/dL Hct (34.0-46.0) % MCV (80.0-100.0) fL MCH (25.0-35.0) pg MCHC (32.0-37.0) g/dL RDW (11.5-15.5) % Immature Gran # (0.00-0.04) X 10*3/uL Neutrophils # (1.80-7.70) X 10*3/uL Monocytes # (0.20-1.00) X 10*3/uL Eosinophils # (0.04-0.35) X 10*3/uL Basophils # (0.00-0.10) X 10*3/uL Haptoglobin 212.0 H (31.2-198.0) mg/dL Anion Gap (4.00-12.00) mmol/L Glucose (70-110) mg/dL POC Glucose (mg/dL) (70-110) mg/dL Iron 15 L (50-170) UG/DL % Saturation 3.63 L (12.00-45.00) Ferritin 9.2 L (10.0-291.0) ng/mL Albumin/Globulin Ratio (1.60-3.17) Ratio Vitamin B12 >3600.0 H (200.0-944.0) pg/mL Folate (4.40-31.00) ng/mL 07/19/24 07/19/24 07/19/24 Range/Units 10:59 16:03 16:31 WBC (3.8-10.6) k/uL Hgb 9.5 L D (11.4-16.0) gm/dL Hct 29.6 L (34.0-46.0) % MCV 76.8 L (80.0-100.0) fL MCH 24.6 L (25.0-35.0) pg MCHC (32.0-37.0) g/dL RDW 19.8 H (11.5-15.5) % Immature Gran # (0.00-0.04) X 10*3/uL Neutrophils # (1.80-7.70) X 10*3/uL Monocytes # (0.20-1.00) X 10*3/uL Eosinophils # (0.04-0.35) X 10*3/uL Basophils # (0.00-0.10) X 10*3/uL Haptoglobin (31.2-198.0) mg/dL Anion Gap (4.00-12.00) mmol/L Glucose (70-110) mg/dL POC Glucose (mg/dL) 145 H (70-110) mg/dL Iron (50-170) UG/DL % Saturation (12.00-45.00) Ferritin (10.0-291.0) ng/mL Albumin/Globulin Ratio (1.60-3.17) Ratio Vitamin B12 (200.0-944.0) pg/mL Folate 36.60 H (4.40-31.00) ng/mL 07/19/24 07/19/24 07/20/24 Range/Units 20:21 23:12 02:59 WBC 11.0 H 12.82 H (3.8-10.6) k/uL Hgb 9.8 L 9.6 L (11.4-16.0) gm/dL Hct 31.3 L 32.3 L (34.0-46.0) % MCV 76.5 L 78.0 L (80.0-100.0) fL MCH 24.1 L 23.2 L (25.0-35.0) pg MCHC 29.7 L (32.0-37.0) g/dL RDW 20.1 H 21.5 H (11.5-15.5) % Immature Gran # 0.05 H (0.00-0.04) X 10*3/uL Neutrophils # 8.95 H (1.80-7.70) X 10*3/uL Monocytes # 1.23 H (0.20-1.00) X 10*3/uL Eosinophils # 0.46 H (0.04-0.35) X 10*3/uL Basophils # 0.11 H (0.00-0.10) X 10*3/uL Haptoglobin (31.2-198.0) mg/dL Anion Gap (4.00-12.00) mmol/L Glucose (70-110) mg/dL POC Glucose (mg/dL) 137 H (70-110) mg/dL Iron (50-170) UG/DL % Saturation (12.00-45.00) Ferritin (10.0-291.0) ng/mL Albumin/Globulin Ratio (1.60-3.17) Ratio Vitamin B12 (200.0-944.0) pg/mL Folate (4.40-31.00) ng/mL 07/20/24 07/20/24 Range/Units 02:59 06:24 WBC (3.8-10.6) k/uL Hgb (11.4-16.0) gm/dL Hct (34.0-46.0) % MCV (80.0-100.0) fL MCH (25.0-35.0) pg MCHC (32.0-37.0) g/dL RDW (11.5-15.5) % Immature Gran # (0.00-0.04) X 10*3/uL Neutrophils # (1.80-7.70) X 10*3/uL Monocytes # (0.20-1.00) X 10*3/uL Eosinophils # (0.04-0.35) X 10*3/uL Basophils # (0.00-0.10) X 10*3/uL Haptoglobin (31.2-198.0) mg/dL Anion Gap 12.50 H (4.00-12.00) mmol/L Glucose 114 H (70-110) mg/dL POC Glucose (mg/dL) 118 H (70-110) mg/dL Iron (50-170) UG/DL % Saturation (12.00-45.00) Ferritin (10.0-291.0) ng/mL Albumin/Globulin Ratio 1.48 L (1.60-3.17) Ratio Vitamin B12 (200.0-944.0) pg/mL Folate (4.40-31.00) ng/mL
== END 2024-07-20 11:41 | disposition home or self-care (01) | DRG 812 ==
LOC: EC 12:29 → 4SSUR 13:15
PROVIDERS: ADMIT Internal Medicine; ATTEND Internal Medicine
PROC: 30233N1 Transfusion of Nonautologous Red Blood Cells into Peripheral Vein, Percutaneous Approach (ICD-10-PCS; principal; 2024-07-18)
DX: D50.9 Iron deficiency anemia, unspecified (principal); E11.9 Type 2 diabetes mellitus without complications; I11.9 Hypertensive heart disease without heart failure; E78.2 Mixed hyperlipidemia; I25.10 Atherosclerotic heart disease of native coronary artery without angina pectoris; I48.0 Paroxysmal atrial fibrillation; Z79.01 Long term (current) use of anticoagulants; Z79.82 Long term (current) use of aspirin; Z79.84 Long term (current) use of oral hypoglycemic drugs; Z79.899 Other long term (current) drug therapy; Z95.5 Presence of coronary angioplasty implant and graft
CPT/HCPCS: 36415; 36430; 71045; 80053; 82272; 82607; 82728; 82746; 83010; 83540; 83550; 83615; 83880; 83921; 84484; 85025; 85027; 85045; 85610; 85730; 86850; 86900; 86901; 86920; 93005; 99285